=== PATIENT | female | born 1955 | race African-American/Black ===

== ENCOUNTER 2018-08-10 13:46 | Emergency (ER) | payer OTHER, MEDICARE ==
[~2018-08-10] VITALS: Ht 167.6 cm; Wt 97.3 kg
[~2018-08-10 13:46] MED LIST: HYDROCHLOR12.5 MG/CA PO; LISINOPRIL20 MG PO; ULTRAM50 M1 PO
[2018-08-10] MEDS ORDERED: TORADOL PO (14:59)
[2018-08-10] MEDS ORDERED: FLEXERIL PO (14:59)
[2018-08-10 15:17] VITALS: BP 180/87
== END 2018-08-10 15:26 | disposition home or self-care (01) | DRG 605 ==
LOC: ED 13:46
DX: S20.211A Contusion of right front wall of thorax, initial encounter (principal); V43.53XA Car driver injured in collision with pick-up truck in traffic accident, initial encounter

== ENCOUNTER 2020-06-19 08:30 | Inpatient (IN) | payer MEDICARE ==
[~2020-06-19] VITALS: Ht 167.6 cm; Wt 91.0 kg
[~2020-06-19 08:30] MED LIST changes: +FLEXERIL PO; -HYDROCHLOR12.5 MG/CA PO; +HYDROCHLOROT12.5 M1 PO; +TORADOL PO
--- NOTE | 2020-06-19 08:50 | NUR ---
PT AMB TO ROOM FOR TRIAGE; PT REFUSED WC
[2020-06-19] MEDS ORDERED: ATORVASTATIN CA10 MG PO (09:15)
[2020-06-19] MEDS ORDERED: GLIMEPIRIDE4 MG PO (09:15)
[2020-06-19 09:28] LABS: HEMATOCRIT 42.6 % (37.0-47.0); HEMOGLOBIN 13.5 g/dl (12.0-16.0); IMMATURE GRANULOCYTES 0.5 % (0.0-5.0); MEAN CELL VOLUME 87.3 fL CALC (80.0-100.0); MEAN CORPUSCULAR HGB 27.7 pG CALC (26.0-32.0); MEAN CORPUSCULAR HGB CONC 31.7 g/dL CAL (32.0-36.0); NEUT# 4.7 thou/uL (2.00-7.15); RED BLOOD COUNT 4.88 mill/uL (4.20-5.60); RED CELL DISTRI WIDTH 13.8 % (11.5-15.5)
[2020-06-19 09:43] LABS: URINE BILIRUBIN - DIPSTICK NEGATIVE (NEGATIVE); URINE BLOOD DIPSTICK NEGATIVE (NEGATIVE); URINE COLOR YELLOW; URINE GLUCOSE - DIPSTICK NEGATIVE (NEGATIVE); URINE KETONE TRACE mg/dL (NEGATIVE); URINE LEUK ESTERASE NEGATIVE (NEGATIVE); URINE NITRITE - DIPSTICK NEGATIVE (Negative); URINE PROTEIN - DIPSTICK >=300 mg/dL (NEG-TRACE); URINE SPECIFIC GRAVITY >=1.030; URINE UROBILINOGEN - DIPSTICK 0.2 E.U./dL (0.2)
[2020-06-19 09:47] LABS: ALBUMIN 4.1 g/dL (3.2-5.0); ALKALINE PHOSPHATASE 156 u/l (38-126); AMYLASE 69 u/l (30-110); ANION GAP 13 (6-22 (CALC)); BILIRUBIN, TOTAL 0.5 mg/dL (0.0-1.4); BUN 23 mg/dL (8-23); BUN/CREATININE RATIO 20 (12-20 (CALC)); CARBON DIOXIDE 25 mmol/l (22-30); CHLORIDE 98 mmol/l (95-108); CREATININE 1.2 mg/dL (0.5-1.0); GFR 45 ML/MIN (>=60 (CALC)); GFR FOR AFR.AMER. 55 ML/MIN (>=60 (CALC)); LIPASE 141 u/l (23-300); POTASSIUM 3.5 mmol/l (3.5-5.1); SODIUM 133 mmol/l (137-146); TOTAL PROTEIN 7.6 g/dL (6.3-8.2)
[2020-06-19 09:50] LABS: SGOT/AST 76 u/l (9-36)
--- NOTE | 2020-06-19 09:50 | NUR ---
PT RESTING ON STRETCHER; STATES PAIN HAS RESOLVED AFTER PAIN MEDICATION; ADVISED OF CONTINUED WAIT TIME; VSS; WILL CONTINUE TO MONTIOR
[2020-06-19 09:59] LABS: MYOGLOBIN 78 ng/mL (0 - 62)
[2020-06-19 10:29] LABS: URINE SQUAMOUS EPITHELIAL CELL FEW EPI/hpf (0-FEW); URINE WBC 0-2 WBC/hpf (0-5)
--- NOTE | 2020-06-19 10:30 | NUR ---
PT RESTING ON STRETCHER WITH EYES CLOSED; NO S/S OF DISTRESS NOTED; PT EASILY AROUSABLE TO SPEECH; ADVISED OF CONTINUED TESTING AND POC; VSS; WILL CONTINUE TO MONITOR
--- NOTE | 2020-06-19 11:30 | NUR ---
PT RESTING ON STRETCHER; NO S/S OF DISTRESS NOTED; VSS; PT DENIES ANY NEEDS AT THIS TIME; VSS; WILL CONTINUE TO MONITOR
[2020-06-19 12:03] LABS: C-REACTIVE PROTEIN 5.9 mg/dL (0-0.9)
--- NOTE | 2020-06-19 12:30 | NUR ---
DR GUZMAN AT BEDSIDE TO DISCUSS POC AND FINDINGS
--- NOTE | 2020-06-19 13:00 | NUR ---
LUNCH TRAY GIVEN; PT ADVISED OF CONTINUED WAIT TIME FOR ADMISSION; DENIES ANY NEEDS AT THIS TIME; VSS; WILL CONTINUE TO MONITOR
--- NOTE | 2020-06-19 14:00 | NUR ---
REPORT CALLED TO WOODY IRAHETA
--- NOTE | 2020-06-19 14:15 | NUR ---
Admission Note Report Given to: WOODY IRAHEAT Transported by: X Wheelchair Stretcher Transported with: X Nurse Transporter X Patent IV O2 Manager Heart Location: ICU X MS2
--- NOTE | 2020-06-19 14:16 | NUR ---
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 WHICH HAS DECREASED SINCE PAIN MEDICATION ADMINISTRATION IN ER,PAIN SCALE AND REPORTING EDUCATED;ASSESSMENT COMPLETED;RESPIRATIONS EVEN AND UNLABORED ON RA,CLEAR/DIMINISHED LUNG SOUNDS NOTED WITH NON-PRODUCTIVE COUGH AT TIMES;ABDOMEN DISTENDED/SOFT ON PALPATION AND ACTIVE IN ALL 4 QUADANTS,LAST BM 06/18/20;WEAK PEDAL PULSES;SKIN INTACT;#20G TO LAC FLUSHED AND PATENT,SITE APPEARS HEALTHY;ALLERGY BAND APPLIED TO RIGHT ARM;PT TO REMAIN IN AIR/CONTACT PRECAUTIONS UNTIL COVID19 TEST RESULTS ARE OBTAINED;PT DENIES ANY ADDITIONAL NEEDS AT THIS TIME AND IS ENCOURAGED TO CALL FOR ASSISTANCE IF NEEDED;FALL PRECAUTIONS IN PLACE WITH BED IN THE LOWEST POSITION AND CALL LIGHT IN REACH;WILL CONTINUE TO MONITOR
[2020-06-19 14:35] VITALS: BP 137/79
--- NOTE | 2020-06-19 15:40 | NUR ---
PT REMAINS OOB RESTING IN RECLINER WATCHING TV;RESPIRATIONS EVEN AND UNLABORED ON RA;PT DENIES ANY CURRENT PAIN OR NEEDS;IV SITE PATENT;ASSESSMENT REMAINS UNCHANGED AT THIS TIME;PT ENCOURAGED TO CALL FOR ASSISTANCE IF NEEDED;FALL PRECAUTIONS IN PLACE WITH CALL LIGHT IN REACH;WILL CONTINUE TO MONITOR
[2020-06-19 19:15] VITALS: BP 103/48
--- NOTE | 2020-06-19 21:17 | NUR ---
PT RESTING IN BED, WITH EYES CLOSED, EASILY AROUSED. RESPIRATIONS EVEN AND UNLABORED ON RA. ;UNGS SOUND CLEAR/DIMINISHED. PEDAL PULSES STRONG. PT DENIES ANY PAIN OR DISCOMFORT AT THIS TIME. PT PROVIDED WITH ICE WATER. SAFETY PRECAUTIONS IN PLACE. WILL CONTINUE TO MONITOR.
--- NOTE | 2020-06-20 00:02 | NUR ---
PT RESTING IN BED, NO S/S OF DISTRESS AT THIS TIME. WILL CONTINUE TO MONTOR.
[2020-06-20 04:00] VITALS: BP 109/62
--- NOTE | 2020-06-20 04:30 | NUR ---
PT RESTING IN BED, RESPIRATIONS SHALLOW ON RA. NON PRODUCTIVE COUGH NOTED. SAFETY PRECAUTIONS IN PLACE. WILL CONTINUE TO MONITOR.
[2020-06-20 05:50] LABS: HEMATOCRIT 37.7 % (37.0-47.0); HEMOGLOBIN 11.7 g/dl (12.0-16.0); IMMATURE GRANULOCYTES 0.4 % (0.0-5.0); MEAN CELL VOLUME 87.7 fL CALC (80.0-100.0); MEAN CORPUSCULAR HGB 27.2 pG CALC (26.0-32.0); NEUT# 3.43 thou/uL (2.00-7.15); RED BLOOD COUNT 4.3 mill/uL (4.20-5.60)
[2020-06-20 06:14] LABS: CHOLESTEROL HDL RATIO 3.7 (<4.4 (CALC)); MAGNESIUM 2.3 mg/dL (1.6-2.3)
[2020-06-20 06:17] LABS: ALBUMIN 3.1 g/dL (3.2-5.0); ALKALINE PHOSPHATASE 125 u/l (38-126); ANION GAP 6 (6-22 (CALC)); BILIRUBIN, TOTAL 0.3 mg/dL (0.0-1.4); BUN 17 mg/dL (8-23); BUN/CREATININE RATIO 18 (12-20 (CALC)); CARBON DIOXIDE 29 mmol/l (22-30); CHLORIDE 103 mmol/l (95-108); GFR 56 ML/MIN (>=60 (CALC)); GFR FOR AFR.AMER. > 60 ML/MIN (>=60 (CALC)); POTASSIUM 3.4 mmol/l (3.5-5.1); SGOT/AST 62 u/l (9-36); SODIUM 134 mmol/l (137-146); TOTAL PROTEIN 6.1 g/dL (6.3-8.2)
--- NOTE | 2020-06-20 07:10 | NUR ---
REPORT RECEIVED FROM LIDNA MORA.
[2020-06-20 08:17] VITALS: BP 125/88
--- NOTE | 2020-06-20 08:20 | NUR ---
PT RESTING AT BEDSIDE,A&O X3;VS OBTAINED AND ASSESSMENT COMPLETED;PT DENIES ANY CURRENT PAIN OR NEEDS,PAIN SCALE AND REPORTING EDUCATED;RESPIRATIONS EVEN AND UNLABORED ON RA,CLEAR/DIMINISHED LUNG SOUNDS NOTED.PT REPORTS PRODUCTIVE COUGH AT TIMES,NO SPUTUM VISUALIZED BY WRITTER;ABDOMEN DISTENDED/SOFT ON PALPATION AND ACTIVE IN ALL 4 QUADRANTS;WEAK PEDAL PULSES;SKIN INTACT;TELE MONITORING IN PLACE;#20G TO RAC INFUSING NS @ 100ML/HR PER HOUR,SITE APPEARS HEALTHY;PT DENIES ANY ADDITIONAL NEEDS AT THIS TIME AND IS ENCOURAGED TO CALL FOR ASSISTANCE IF NEEDED;FALL PRECAUTIONS IN PLACE WITH BED IN THE LOWEST POSITION AND CALL LIGHT IN REACH;WILL CONTINUE TO MONITOR
--- NOTE | 2020-06-20 11:50 | NUR ---
PT RESTING IN SEMI FOWLERS POSITION;RESPIRATIONS EVEN AND UNLABORED RA;PT DENIA ANY CURRENT PAIN OR NEEDS, PT ASSISTED RE-POSITIONED IN BED;IV FLUIDS INFUSING @ 75ML/HR PER ORDER,SITE APPEARS HEALTHY AND ABX STRATED AT THIS TIME;ACCUCHECK 172, PT COVERED WITH SLIDING SCALE NOVOLOG PER ORDER;PT DENIES ANY ADDITIONAL NEEDS AT THIS TIME AND IS ENCOURAGED TO CALL FOR ASSISTANCE IF NEEDED;CALL LIGHT IN REACH;WILL CONTINUE TO MONITOR
[2020-06-20 15:48] VITALS: BP 127/64
--- NOTE | 2020-06-20 16:20 | NUR ---
PT RESTING IN SEMI FOWLERS POSITION;RESPIRATIONS SHALLOW ON RA, O2 SATS RESULTING @ 87%-89%. INSTRUCTED PT TO GET INTO PRONE POSITION; O2 SATS REMAIN THE SAME, 02 @ 2L APPLIED VIA NC AND O2 SATS QUICKLY TATI TO 93%; PT DENIES ANY CURRENT PAIN OR DISCOMFORTS,PAIN SCALE AND REPORTING EDUCATED;CURRENT TEMP 103.5 ORALLY. BLANKETS REMOVED,LOWERED AND TYLENOL 650MG PO PROVIDED;AMALIA ANRP NOTIFIED;IV SITE PATENT INFUSING NS @ 75ML/HR,SITE REMAINS HEALTHY;PT DENIES ANY ADDITIONAL NEEDS AT THIS TIME;CALL LIGHT IN REACH;WILL CONTINUE TO MONITOR
--- NOTE | 2020-06-20 17:05 | NUR ---
O2 SATS REMAIN @ 93% ON O2 @ 2L VIA NC;TEMP RE-CHECK 102.0;WILL CONTINUE TO MONITOR
--- NOTE | 2020-06-20 17:50 | NUR ---
TEMP RE-CHECK 100.8.
[2020-06-20 18:54] VITALS: BP 125/74
--- NOTE | 2020-06-20 21:47 | NUR ---
PT RESTING IN BED ALERT AND OREINTED. RESPIRATIONS SHALLOW ON O2 @ 2L VIA NC. LUNGS SOUND DIMINISHED. PEDAL PULSES ARE STRONG. PT REPORTS HAVING MILD PAIN IN HER LOWER BACK, ASSISTED PT TO REPOSITION. PT REPORTS FEELING COLD, TEMP 96.7 ASSISTED PT WITH BLANKET. CALL GRIMALDO WITHIN REACH. WILL CONTINUE TO MONITOR.
--- NOTE | 2020-06-21 00:32 | NUR ---
PT RESTING IN BED, NO S/S OF DISTRESS AT THIS TIME. SAFETY PRECAUTIONS IN PLACE. WILL CONTINUE TO MONITOR.
[2020-06-21 04:20] VITALS: BP 119/67
--- NOTE | 2020-06-21 04:39 | NUR ---
PT RESTING IN BED, NO S/S OF DISTRESS AT THIS TIME. SAFETY PRECAUTIONS IN PLACE. WILL CONTINUE TO MONITOR.
[2020-06-21 05:15] LABS: HEMATOCRIT 39.2 % (37.0-47.0); HEMOGLOBIN 12.4 g/dl (12.0-16.0); IMMATURE GRANULOCYTES 0.5 % (0.0-5.0); MEAN CELL VOLUME 87.3 fL CALC (80.0-100.0); MEAN CORPUSCULAR HGB 27.6 pG CALC (26.0-32.0); MEAN CORPUSCULAR HGB CONC 31.6 g/dL CAL (32.0-36.0); NEUT# 2.91 thou/uL (2.00-7.15); RED BLOOD COUNT 4.49 mill/uL (4.20-5.60); RED CELL DISTRI WIDTH 13.9 % (11.5-15.5)
[2020-06-21 05:35] LABS: ALBUMIN 3.1 g/dL (3.2-5.0); ALKALINE PHOSPHATASE 144 u/l (38-126); BILIRUBIN, TOTAL 0.3 mg/dL (0.0-1.4); BUN 12 mg/dL (8-23); BUN/CREATININE RATIO 16 (12-20 (CALC)); CARBON DIOXIDE 27 mmol/l (22-30); CHLORIDE 104 mmol/l (95-108); CREATININE 0.8 mg/dL (0.5-1.0); GFR > 60 ML/MIN (>=60 (CALC)); GFR FOR AFR.AMER. > 60 ML/MIN (>=60 (CALC)); SGOT/AST 66 u/l (9-36); SODIUM 135 mmol/l (137-146); TOTAL PROTEIN 6.3 g/dL (6.3-8.2)
[2020-06-21 05:43] LABS: ANION GAP 8 (6-22 (CALC)); POTASSIUM 4.2 mmol/l (3.5-5.1)
[2020-06-21 05:53] LABS: C-REACTIVE PROTEIN 14.2 mg/dL (0-0.9)
[2020-06-21 07:40] VITALS: BP 140/77
--- NOTE | 2020-06-21 07:40 | NUR ---
ASSESSMENT IS COMPLETED: IV SITE IS FREE FROM REDNESS OR EDEMA. HR IS REG,PULSES ARE STRONG X4, ABD IS SOFT WITH ACTIVE BS. BREATH SOUNDS ARE CLEAR,AND DIMINISHED BILATERALLY., O2 @ 2LITERS WITH NC. CONTINUE TO OSBERVE AND MONITOR. PT ACTED A LITTLE CONFUSED THIS AN PT STATED" I WAS FLUSTERED DUE TO PUTTING THE GOWN BACK ON".
[2020-06-21 10:40] VITALS: BP 135/77
--- NOTE | 2020-06-21 12:30 | NUR ---
PT IS SITTING IN THE CHAIR NO DISTRESS NOTED. IV SITE IS FREE FROM REDNESS OR EDEMA.
[2020-06-21 15:00] VITALS: BP 147/80
--- NOTE | 2020-06-21 16:30 | NUR ---
PT IS RELAXING IN THE CHAIR WITH NO DISTRESS NOTED. IV SITE IS FREE FROM REDNESS OR EDEMA.
[2020-06-21 20:08] VITALS: BP 141/84
--- NOTE | 2020-06-21 20:35 | NUR ---
PT AMBULATING FROM BATHROOM, NO SIGNS OF DISTRESS NOTED, RESP EVEN AND UNLABORED. PT ON 02 2L NC, DISCUSSED POC, PT ALERT AND ORIENTED X3, ASSESSMENT COMPLETED, PT VOICES NO NEEDS OR COMPLAINTS AT THIS TIME, CALL LIGHT IN REACH,CONTINUE TO MONITOR.
--- NOTE | 2020-06-21 21:49 | NUR ---
PT RESTING IN BED, NO SIGNS OF DISTRESS NOTED, RESP EVEN AND UNLABORED. DISCUSSED MD ECTOR SAENZ PT VERBALIZED UNDERSTANDING. SNACK PROVIDED. CALL LIGHT IN REACH,CONTINUE TO MONITOR.
--- NOTE | 2020-06-22 00:15 | NUR ---
PT RESTING IN BED WITH EYES CLOSED, NO SIGNS OF DISTRESS NOTED, RESP EVEN AND UNLABORED. CALL LIGHT IN REACH,CONTINUE TO MONITOR.
[2020-06-22 04:01] VITALS: BP 124/69
--- NOTE | 2020-06-22 06:11 | NUR ---
PT RESTING IN BED, NO SIGNS OF DISTRESS NOTED, RESP EVEN AND UNLABORED. PT VOICES NO NEEDS OR COMPLAINTS AT THIS TIME, CALL LIGHT IN REACH,CONTINUE TO MONITOR.
[2020-06-22 08:00] VITALS: BP 150/85
--- NOTE | 2020-06-22 08:00 | NUR ---
ASSESSMENT IS COMPLTED: IV SITE IS FREE FROM REDNESS OR EDEMA. HR IS REG,PULSES ARE STRONG X4, ABD IS SOFT WITH ACTIVE BS. BREATH SOUNDS ARE CLEAR, BILATERALLY. NO C/O SOB. O2 @ 2LITERS WITH NC. CONTINUE TO OSBERVE AND MONITOR.
--- NOTE | 2020-06-22 12:45 | NUR ---
PT IS RELAXING IN THE CHAIR. NO DISTRESS NOTED. IV SITE IS FREE FROM REDNESS OR EDEMA. CONITNUE TO OSBERVE AND MONITOR.
--- NOTE | 2020-06-22 14:57 | NUR ---
PT RECEIVED DIABETIC TEACHING SENT FROM ARCHANA BENJAMIN.
[2020-06-22 16:35] VITALS: BP 154/85
--- NOTE | 2020-06-22 16:50 | NUR ---
PT HAS BEEN RELAXING IN BED WITH NO DISTRESS NOTED. IV SITE IS FREE FROM REDNESS OR EDEMA. CONITNUE TO OBSERVE AND MONITOR.
[2020-06-22 20:30] VITALS: BP 142/79
--- NOTE | 2020-06-22 20:35 | NUR ---
ASSESSMENT COMPLETED. NO DISTRESS NOTED; PT. WITH PRODUCTIVE COUGH AND MEDICATED WITH ORDERED PRN ROBITUSSIN AC. IV SITE PATENT AND SL, FLUSHED WITH NS WITHOUT DIFFICULTY. SCHED MEDS GIVEN. O2 REMAINS INFUSING PER NC @2LITERS/MIN. DENIES NEEDS AND VOICES NO CONCERNS. CALL LIGHT IS IN REACH.
--- NOTE | 2020-06-22 22:00 | NUR ---
PT. IS PRONING AT THIS TIME; RESP. EVEN AND UNLABORED. CALL LIGHT IS IN REACH.
--- NOTE | 2020-06-23 00:30 | NUR ---
RESTING IN BED WITH EYES CLOSED; NO DISTRESS NOTED.
--- NOTE | 2020-06-23 03:00 | NUR ---
PT. IN BED PRONING WITH EYES CLOSED; NO DISTRESS NOTED; CALL LIGHT IS IN REACH.
[2020-06-23 03:59] VITALS: BP 153/88
--- NOTE | 2020-06-23 04:35 | NUR ---
PT. ASSISTED BACK INTO SEMI-FOLWERS POSITION AND REPORTS BACK ACHE AND COUGH; MEDICATED WITH ORDERED PRN TYLENOL AND ROBITUSSIN AC; WILL REASSESS. IV SITE DUE TO BE CHANGED AND NEW SITE STARTED TO RAC X1 ATTEMPT AND AM LABS OBTAINED; REMOVED OLD IV SITE TO LAC WITH CATHETER TIP INTACT; PT. TOLERATED WELL. VSS. ENCOURAGED TO CALL FOR ANY NEEDS. VOICES NO OTHER CONCERNS. CALL LIGHT IS IN REACH. WILL CONTINUE TO MONITOR.
[2020-06-23 06:02] LABS: ALBUMIN 3.3 g/dL (3.2-5.0); ALKALINE PHOSPHATASE 138 u/l (38-126); ANION GAP 11 (6-22 (CALC)); BILIRUBIN, TOTAL 0.3 mg/dL (0.0-1.4); BUN 16 mg/dL (8-23); BUN/CREATININE RATIO 20 (12-20 (CALC)); C-REACTIVE PROTEIN 5.8 mg/dL (0-0.9); CARBON DIOXIDE 25 mmol/l (22-30); CHLORIDE 102 mmol/l (95-108); CREATININE 0.8 mg/dL (0.5-1.0); GFR > 60 ML/MIN (>=60 (CALC)); GFR FOR AFR.AMER. > 60 ML/MIN (>=60 (CALC)); POTASSIUM 3.4 mmol/l (3.5-5.1); SGOT/AST 46 u/l (9-36); SODIUM 135 mmol/l (137-146); TOTAL PROTEIN 6.5 g/dL (6.3-8.2)
[2020-06-23 06:08] LABS: HEMATOCRIT 39.3 % (37.0-47.0); HEMOGLOBIN 12.5 g/dl (12.0-16.0); IMMATURE GRANULOCYTES 0.9 % (0.0-5.0); MEAN CORPUSCULAR HGB 27.4 pG CALC (26.0-32.0); MEAN CORPUSCULAR HGB CONC 31.8 g/dL CAL (32.0-36.0); NEUT# 8.64 thou/uL (2.00-7.15); RED BLOOD COUNT 4.57 mill/uL (4.20-5.60); RED CELL DISTRI WIDTH 13.9 % (11.5-15.5)
[2020-06-23 08:26] VITALS: BP 146/74
--- NOTE | 2020-06-23 08:26 | NUR ---
PT SITTING IN RECLINER NO SIGNS OF DISTRESS NOTED, RESP EVEN AND UNLABORED. DISCUSSED POC, PT VOICES NO NEEDS OR COMPLAINTS AT THIS TIME, VITALS OBTAINED. ASSESSMENT COMPLETED, CALL LIGHT IN REACH,CONTINUE TO MONITOR.
--- NOTE | 2020-06-23 12:29 | NUR ---
PT SITTING IN RECLINER, NO SIGNS OF DISTRESS NOTED, RESP EVEN AND UNLABORED. IV ANTIBIOTICS INFUSING. CALL LIGHT IN REACH,CONTINUE TO MONITOR.
--- NOTE | 2020-06-23 14:31 | NUR ---
PT RESTING TO BED, NO SIGNS OF DISTRESS NOTED, RESP EVEN AND UNLABORED. PT VOICES NO NEEDS OR COMPLAINTS AT THIS TIME, CALL LIGHT IN REACH,CONTINUE TO MONITOR.
--- NOTE | 2020-06-23 15:55 | NUR ---
PT RESTING IN BED, NO SIGNS OF DISTRESS NOTED, RESP EVEN AND UNLABORED. CALL LIGHT IN REACH,CONTINUE TO MONITOR.
[2020-06-23 16:10] VITALS: BP 146/93
--- NOTE | 2020-06-23 17:40 | NUR ---
PT RESTING IN BED, DINNER PROVIDED, PT VOICES NO NEEDS OR COMPLAINTS AT THIS TIME, CALL LIGHT IN REACH,CONTINUE TO MONITOR.
[2020-06-23 20:16] VITALS: BP 154/89
--- NOTE | 2020-06-23 20:41 | NUR ---
ASSESSMENT COMPLETED. NO DISTRESS NOTED; DENIES PAIN. PT. WITH O2 INFUSING PER NC PER ORDER; PT. C/O COUGH AND MEDICATED WITH ORDERED PRN ROBITUSSIN AC ALONG WITH OTHER SCHED MEDS. PT. REPORTS BM TODAY EARLIER IN DAY. IV SITE PATENT AND SL, SNACK PROVIDED. ENCOURAGED TO CALL FOR ANY NEEDS. VOICE NO COCERNS.
--- NOTE | 2020-06-23 23:38 | NUR ---
RESTING IN BED WITH EYES CLOSED; RESP. EVEN AND UNLABORED. CALL LIGHT IS IN REACH. WILL CONTINUE TO MONITOR.
--- NOTE | 2020-06-24 01:32 | NUR ---
PT. RESTING IN BED IN PRONE POSITION WITH EYES CLOSED; NO DISTRESS NOTED; WILL CONTINUE TO MONITOR.
[2020-06-24 03:55] VITALS: BP 156/88
--- NOTE | 2020-06-24 04:10 | NUR ---
PT. RESTING IN BED WITH NO RESP. DISTRESS NOTED; C/O BACK PAIN AND COUGH AND MEDICATED WITH ORDERED PRN TYLENOL AND ROBITUSSIN AC; WILL REASSESS.
[2020-06-24 08:00] VITALS: BP 140/85
--- NOTE | 2020-06-24 09:00 | NUR ---
PT AWAKE, ALERT, ORIENTED X 3. LUNGS CLEAR, 2 LPM NC. NO COMPLAINTS OF SHORTNESS OF BREATH OR OTHERWISE.
--- NOTE | 2020-06-24 13:00 | NUR ---
PT SEEN OOB IN CHAIR THIS MORNING, HAS BEEN PROVIDED ANTIBIOTICS ORDERED. NO DISTRESS, NO COMPLAINTS.
[2020-06-24 14:59] VITALS: BP 148/81
--- NOTE | 2020-06-24 16:29 | NUR ---
PT REMAINS IN CHAIR THROUGHOUT THIS DAY, NO DISTRESS, NO CHANGE IN STATUS.
[2020-06-24 19:30] VITALS: BP 150/84
--- NOTE | 2020-06-24 20:30 | NUR ---
PT. SITTING UP IN BED WATCHING TV. O2 INFUSING PER NC PER ORDER. REPORTS COUGH AND MEDICATED WITH ORDERED PRN ROBITUSSIN AC ALONG WITH OTHER SCHED MEDS. SNACK PROVIDED. IV SITE PATENT AND SL. REPORTS SMALL STOOL EARLIER TODAY. UPDATED ON POC. ENCOURAGED TO CALL FOR ANY NEEDS.
--- NOTE | 2020-06-25 00:21 | NUR ---
PT. RESTING IN BED WITH EYES CLOSED; NO DISTRESS NOTED; WILL CONTINUE TO MONITOR.
--- NOTE | 2020-06-25 03:58 | NUR ---
FINAL FINISHER FORGING DIES IN AT BEDSIDE OBTAINING VS; DENIES NEEDS; CALL LIGHT IS IN REACH.
[2020-06-25 04:00] VITALS: BP 150/77
[2020-06-25 05:31] LABS: HEMATOCRIT 39.3 % (37.0-47.0); HEMOGLOBIN 12.6 g/dl (12.0-16.0); IMMATURE GRANULOCYTES 2.5 % (0.0-5.0); MEAN CELL VOLUME 84.5 fL CALC (80.0-100.0); MEAN CORPUSCULAR HGB 27.1 pG CALC (26.0-32.0); MEAN CORPUSCULAR HGB CONC 32.1 g/dL CAL (32.0-36.0); NEUT# 5.61 thou/uL (2.00-7.15); RED BLOOD COUNT 4.65 mill/uL (4.20-5.60)
--- NOTE | 2020-06-25 05:42 | NUR ---
PT. ESTING IN BED ON LEFT SIDE WITH EYES CLOSED. NO DISTRESS NOTED.
[2020-06-25 05:54] LABS: ALBUMIN 3.1 g/dL (3.2-5.0); ALKALINE PHOSPHATASE 131 u/l (38-126); ANION GAP 8 (6-22 (CALC)); BILIRUBIN, TOTAL 0.3 mg/dL (0.0-1.4); BUN 19 mg/dL (8-23); BUN/CREATININE RATIO 28 (12-20 (CALC)); C-REACTIVE PROTEIN 3.6 mg/dL (0-0.9); CARBON DIOXIDE 29 mmol/l (22-30); CHLORIDE 102 mmol/l (95-108); CREATININE 0.7 mg/dL (0.5-1.0); GFR > 60 ML/MIN (>=60 (CALC)); GFR FOR AFR.AMER. > 60 ML/MIN (>=60 (CALC)); POTASSIUM 3.3 mmol/l (3.5-5.1); SODIUM 135 mmol/l (137-146); TOTAL PROTEIN 6.1 g/dL (6.3-8.2)
[2020-06-25 05:55] LABS: SGOT/AST 90 u/l (9-36)
[2020-06-25 08:00] VITALS: BP 151/75
--- NOTE | 2020-06-25 08:00 | NUR ---
ASSESSMENT IS COMPLETED: IV SITE IS FREE FROM REDNESS OR EDEMA. HR IS REG,PULSES ARE STRONG X4, ABD IS SOFT WITH ACTIVE BS. BREATH SOUNDS ARE CLEAR,BILATERALLY, NO C/O SOB, O2 @ 2LITERS WITH NC. CONTINUE TO OSBERVE AND MONITOR.
--- NOTE | 2020-06-25 12:30 | NUR ---
PT IS RELAXING IN BED WITH NO DISTRESS NOTED.
[2020-06-25 15:00] VITALS: BP 152/88
--- NOTE | 2020-06-25 16:30 | NUR ---
PT IS RELAXING IN BED WITH NO DISTRESS NOTED. IV SITE IS FREE FROM RENDESS OR EDEMA.
[2020-06-25 20:08] VITALS: BP 160/87
--- NOTE | 2020-06-25 20:39 | NUR ---
ASSESSMENT COMPLETED. NO DISTRESS NOTED; DENIES NEEDS/PAIN. SCHED MEDS GIVEN AND SNACK PROVIDED. O2 INFUSING PER NC @2LITERS/MIN AND DECREASED TO 1LITER/MIN; WILL CONTINUE TO MONITOR.PT. REPORTS MULTIPLE BM'S EARLIER IN DAY. ENCOURAGED TO CALL FOR ANY NEEDS. CALL LIGHT IS IN REACH.
[2020-06-25 23:13] VITALS: BP 133/89
--- NOTE | 2020-06-25 23:13 | NUR ---
VSS; SPO2 95% ON 1LITER/MIN. WILL CONTINUE TO MONITOR. B/P WNL. DENIES NEEDS/VOICES NO CONCERNS. CALL LIGHT IS IN REACH.
[2020-06-26 03:40] VITALS: BP 144/70
--- NOTE | 2020-06-26 03:50 | NUR ---
PT. RESTING IN BED IN PRONE POSITION; DENIES NEEDS AND VOICES NO COMPLAINTS. CALL LIGHT IS IN REACH. INSTRUCTED TO CALL FOR ANY NEEDS.
[2020-06-26 07:50] VITALS: BP 172/78
--- NOTE | 2020-06-26 07:50 | NUR ---
ASSESSMENT IS COMPLTED: IV SITE IS FREE FROM REDNESS OR EDEMA. HR IS REG,PULSES ARE STRONG X4, ABD IS SOFT WITH ACTIVE BS. BREATH SOUNDS ARE CLEAR,BILATERALLY. O2 @ 1LITER WITH NC.SAT WAS 96% WILL REDUCE TO .5L CONTINUE TO OBSERVE AND MONITOR.
--- NOTE | 2020-06-26 12:35 | NUR ---
PT IS RELAXING IN BED WITH NO DISTRESS NOTED. IV SITE IS FREE FROM REDNESS OR EDEMA.
[2020-06-26 15:28] VITALS: BP 133/85
--- NOTE | 2020-06-26 16:50 | NUR ---
PT IS RELAXING IN THE CHAIR, NO DISTRESS NOTED. IV SITE IS FREE FROM REDNESS OR EDEMA.
[2020-06-26 19:30] VITALS: BP 151/80
--- NOTE | 2020-06-26 21:10 | NUR ---
PT. RESTING IN BED ASLEEP; AWAKENED FOR ASSESSMENT; COMPLETED AT THIS TIME. IV SITE PATENT AND SL. PT. DECLINES LOVENOX INJECTION. UPDATED ON POC. PT. REPORTS SHE IS READY TO GO HOME TOMORROW. PT. REMAINS ON RA; NO SOB NOTED. CALL LIGHT IS IN REACH. WILL CONTINUE TO MONITOR.
--- NOTE | 2020-06-26 23:30 | NUR ---
PT. RESTING IN BED WITH EYES CLOSED; RESP. EVEN AND UNLABORED. CALL LIGHT IS IN REACH.
[2020-06-27 03:30] VITALS: BP 139/77
--- NOTE | 2020-06-27 03:45 | NUR ---
RESTING IN BED WITH EYES CLOSED; NO DISTRESS NOTED; CALL LIGHT IS IN REACH.
--- NOTE | 2020-06-27 05:40 | NUR ---
PT. RESTING IN BED WITH EYES CLOSED; AWAKENED AND DENIES NEEDS.
[2020-06-27 05:49] LABS: HEMATOCRIT 37.9 % (37.0-47.0); IMMATURE GRANULOCYTES 2.5 % (0.0-5.0); MEAN CELL VOLUME 86.3 fL CALC (80.0-100.0); MEAN CORPUSCULAR HGB 27.3 pG CALC (26.0-32.0); MEAN CORPUSCULAR HGB CONC 31.7 g/dL CAL (32.0-36.0); NEUT# 5.07 thou/uL (2.00-7.15); RED BLOOD COUNT 4.39 mill/uL (4.20-5.60); RED CELL DISTRI WIDTH 13.9 % (11.5-15.5)
[2020-06-27 06:25] LABS: ALBUMIN 3.1 g/dL (3.2-5.0); ALKALINE PHOSPHATASE 135 u/l (38-126); ANION GAP 9 (6-22 (CALC)); BILIRUBIN, TOTAL 0.4 mg/dL (0.0-1.4); BUN 21 mg/dL (8-23); BUN/CREATININE RATIO 31 (12-20 (CALC)); C-REACTIVE PROTEIN 1.7 mg/dL (0-0.9); CARBON DIOXIDE 27 mmol/l (22-30); CHLORIDE 103 mmol/l (95-108); CREATININE 0.7 mg/dL (0.5-1.0); GFR > 60 ML/MIN (>=60 (CALC)); GFR FOR AFR.AMER. > 60 ML/MIN (>=60 (CALC)); POTASSIUM 3.8 mmol/l (3.5-5.1); SGOT/AST 91 u/l (9-36); SODIUM 135 mmol/l (137-146)
--- NOTE | 2020-06-27 07:47 | NUR ---
RECIEVED REPORT FROM LINDA ADORNO. PT SLEEPING IN LOW FOWLERS POSITION UPON ENTERING ROOM. RRESPIRATIONS ARE EVEN AND UNLABORED WTIH NO SIGNS OF DISTRESS. NO SIGNS OF ANY PAIN. ALL SAFTEY PRCAUTIONS ARE IN PLACE WITH CALL LIGHT IN REACH. WILL CONTINUE TO MONITOR
--- NOTE | 2020-06-27 09:03 | NUR ---
RECIEVED REPORT FROM LINDA FOSS. PT RESTING IN SEMI FRAUSTO SPOTIION UPON ENTERING ROOM. ASSESSMENT AND VITALS COMPLETED AT THIS TIME. BP 119/75, HR 88, O2 93% ON ROOM AIR. RESPIRATIONS ARE EVEN AND UNLABORED WITH NO SIGNS OF DISTRESS. LUNG SOUNDS ARE CLEAR. HEART RHYTHM IS NORMAL. BOWEL SOUNDS ARE ACTIVE IN ALL QUADRANTS. #22 IN RAC FLUSHED, SITE APPEARS HEALTHY AND PATENT. RADIAL AND PEDAL PULSES ARE STRONG WITH NORMAL CAPILLARY REFILL. PT DENIES OF ANY PAIN OR DISCOMFORTS AT THIS TIME. ALL SAFETY PRECAUTIONS ARE IN PLACE WITH CALL LIGHT IN REACH. WILL CONTINUE TO MONITOR
[2020-06-27 09:06] VITALS: BP 119/75
[2020-06-27 09:12] VITALS: BP 119/75
[2020-06-27] MEDS ORDERED: ZITHROMAX250 MG PO (10:10)
[2020-06-27] MEDS ORDERED: DECADRON2 MG PO (10:10)
[2020-06-27] MEDS ORDERED: DEXAMETHASON6 MG PO (10:10)
[2020-06-27] MEDS ORDERED: JARDIANCE10 MG PO (10:10)
--- NOTE | 2020-06-27 12:35 | NUR ---
PT SITTING UP IN CHAIR. RESPIRATIONS ARE EVEN AND UNLABORED WITH NO SIGNS OF DISTRESS. PT DENIES ANY PAIN OR DISCOMFORTS AT THSI TIME. DISCHARGE ORDERS IN PLACE, AWAITING FOR OXYGEN FOR DISCHARGING. ALL SAFETY PRECAUTIONS ARE IN PLACE WITH CALL LIGHT IN REACH. WILL CONTINUE TO MONITOR
--- NOTE | 2020-06-27 15:58 | NUR ---
PT EDUCATED ON DISCHARGE INSTRUCTIONS AT THIS TIME. PT VERBALIZED UNDERSTANDING. IV REMOVED WITH CATHATER STILL INTACT. AWAITING FOR TRANSPORTATION AT THIS TIME. ALL SFAETY PRECAUTIONS ARE IN PLACE WITH CALL LIGHT IN REACH. WILL CONTIUE TO [facility]
--- NOTE | 2020-06-27 16:07 | NUR ---
Discharge instructions given. Patient verbalizes understanding of same. Discharged in stable condition via Wheelchair to Home with family. All belongings sent with pt. PT LEFT VIA WHEELCHAIR IN STABLE CONDITION ACCOMPAINED BY LANA CARLTON. PT LEFT WITH ALL BELONGINGS AND OXYGEN
--- NOTE | 2020-07-03 13:33 | NUR ---
Pneumonia post discharge followup call completed today, 07/03/20. Pt. states she is doing well. No SOB, cough, fever, or chills. Pt. took medications given to her upon discharge without difficulty. Pt. is still quarantining and will see at the end of the 14 days. No needs or questions expressed by pt. at this time. She is very grateful for the care she received and for the call today.
== END 2020-06-27 16:07 | disposition home or self-care (01) | DRG 177 ==
LOC: ED 08:30 → ED-I 12:10 → ED 12:24 → ED-I 12:25 → MS2 12:25
PROVIDERS: Emergency Medicine; Nurse Practitioner; ADMIT Internal Medicine; ATTEND Internal Medicine
DX: U07.1 COVID-19 (principal); J12.89 Other viral pneumonia; I10 Essential (primary) hypertension; E11.65 Type 2 diabetes mellitus with hyperglycemia; K76.0 Fatty (change of) liver, not elsewhere classified; E87.6 Hypokalemia; E78.5 Hyperlipidemia, unspecified; N28.9 Disorder of kidney and ureter, unspecified; R43.9 Unspecified disturbances of smell and taste; F17.200 Nicotine dependence, unspecified, uncomplicated; Z79.84 Long term (current) use of oral hypoglycemic drugs
CPT/HCPCS: G0378; J1650; Q9967

== ENCOUNTER 2023-09-04 09:58 | Emergency (ER) | payer MEDICARE ==
[2023-09-04] VITALS (9 sets, daily range): BP systolic 96–123; BP diastolic 55–85
[~2023-09-04] VITALS: Ht 167.6 cm; Wt 95.0 kg
[~2023-09-04 09:58] MED LIST changes: +ATORVASTATIN CA10 MG PO; +DECADRON2 MG PO; +DEXAMETHASON6 MG PO; +GLIMEPIRIDE4 MG PO; +JARDIANCE10 MG PO; +ZITHROMAX250 MG PO
[2023-09-04] MEDS ORDERED: NAPROXEN500 MG PO (11:13)
== END 2023-09-04 12:07 | disposition home or self-care (01) ==
LOC: ED 09:58
DX: M25.512 Pain in left shoulder (principal); I10 Essential (primary) hypertension; E11.9 Type 2 diabetes mellitus without complications